=== PATIENT | male | born 1980 | race American Indian/Alaskan Native ===

== ENCOUNTER 2021-04-25 00:08 | Emergency (ER) | payer SELFPAY | END 2021-04-25 00:39 | disposition left against medical advice (07) | LOC: ED 00:08 ==

== ENCOUNTER 2021-10-08 12:59 | Emergency (ER) | payer SELFPAY ==
[2021-10-08 13:15] VITALS: BP 132/85
[2021-10-08] MEDS ORDERED: oxyCODONE /ACETAMINOPHEN 5-325MG TAB PO ONE (13:24)
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
== END 2021-10-08 15:50 | disposition home or self-care (01) ==
LOC: ED 12:59
DX: S63.591A Other specified sprain of right wrist, initial encounter (principal); W50.0XXA Accidental hit or strike by another person, initial encounter; Y93.89 Activity, other specified; Y92.89 Other specified places as the place of occurrence of the external cause; Y99.8 Other external cause status
CPT/HCPCS: 99283

== ENCOUNTER 2022-02-22 13:26 | Emergency (ER) | payer SELFPAY ==
[2022-02-22] MEDS ORDERED: ACETAMINOPHEN 500 MG TAB PO ONE (14:43)
[2022-02-22 14:59] VITALS: BP 156/85
--- NOTE | 2022-02-22 15:14 | XRay Report ---
RIGHT WRIST 3 VIEW(S) INDICATION / CLINICAL INFORMATION: right wrist pain COMPARISON: 10/08/2021 FINDINGS: BONES / JOINT(S): Mild cortical irregularity of the ulnar styloid process, new compared to reference exam from 2020, could reflect a nondisplaced fracture. Distal radius appears intact. No significant a rthritis. SOFT TISSUES: Mild soft tissue swelling about the dorsal and ulnar aspect of the wrist ADDITIONAL FINDINGS: None. Signer Name: Adonay Peng MD Signed: 02/22/2022 3:10 PM Workstation Name: [id number]
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
== END 2022-02-22 16:36 | disposition home or self-care (01) ==
LOC: ED 13:26
DX: S62.101A Fracture of unspecified carpal bone, right wrist, initial encounter for closed fracture (principal); Z88.6 Allergy status to analgesic agent; Z79.899 Other long term (current) drug therapy; X58.XXXA Exposure to other specified factors, initial encounter; Y93.89 Activity, other specified; Y92.89 Other specified places as the place of occurrence of the external cause; Y99.8 Other external cause status
CPT/HCPCS: 99283